=== PATIENT | male | born 1980 | race Caucasian/White ===

== ENCOUNTER 2018-10-17 23:31 | Emergency (ER) | payer MEDICAID, OTHER, SELFPAY ==
[~2018-10-17] VITALS: Ht 172.7 cm; Wt 71.8 kg
[2018-10-17 23:32] VITALS: BP 108/65
[2018-10-17] MEDS ORDERED: VIVI380I IM (23:39)
[2018-10-18] MEDS ORDERED: IPRATROPIUM 0.5MG/ALBUTEROL 2.5MG INH SOL UD 3ML (DUONEB)(J7620) NEB ONE (00:15)
[2018-10-18] MEDS ORDERED: AUGMENTIN 875 MG TAB PO ONE (00:15)
[2018-10-18] MEDS ORDERED: IBUP-1022 PO (00:52)
[2018-10-18] MEDS ORDERED: AUGM875T28 PO (00:52)
[2018-10-18] MEDS ORDERED: LIDO2SO PO (00:52)
[2018-10-18] MEDS ORDERED: PRED20TA PO (00:52)
[2018-10-18] MEDS ORDERED: PROAAER10 INH (00:52)
[2018-10-18] MEDS ORDERED: LIDOCAINE VISCOUS 2% SOLN 15ML UDC SSP ONE (01:00)
[2018-10-18] MEDS ORDERED: ALBUTEROL 90 MCG/ACT 8GM HFA INHALER INH ONE (01:00)
[2018-10-18] MEDS ORDERED: IBUPROFEN 600 MG TAB PO ONE (01:00)
--- NOTE | 2018-10-18 05:46 | REP ---
Clinical: Dyspnea and fever . Comparison: None . Technique: PA and lateral. Findings: The mediastinum and cardiac silhouette are normal. The lung bingham are clear and without acute consolidation, effusion, or pneumothorax. A small area of possible linear scarring in the medial left base identified on frontal radiograph cannot be excluded. The skeletal structures are intact and normal. Impression: 1. No acute cardiopulmonary process. Electronically Signed by Devyn Levine MD 10/18/2018 05:38 A
== END 2018-10-18 01:14 | disposition home or self-care (01) ==
LOC: EDBD 23:31 → M ED 23:31
DX: J06.9 Acute upper respiratory infection, unspecified (principal); K04.7 Periapical abscess without sinus; F19.11 Other psychoactive substance abuse, in remission; F17.200 Nicotine dependence, unspecified, uncomplicated

== ENCOUNTER → 2018-10-21 | Outpatient (CLI) | payer MEDICAID ==
[~2018-10-21] MED LIST: AUGM875T28 PO; IBUP-1022 PO; LIDO2SO PO; PRED20TA PO; PROAAER10 INH; VIVI380I IM
== END ==
LOC: M OUTALCOH 08:13
PROVIDERS: ATTEND Psychiatry & Neurology Psychiatry
DX: F11.20 Opioid dependence, uncomplicated (principal)

== ENCOUNTER 2020-05-10 19:04 | Emergency (ER) | payer MEDICAID ==
[~2020-05-10] VITALS: Ht 170.2 cm; Wt 63.4 kg
[2020-05-10 19:32] LABS: BASO % 0.2 % (0.0-1.0); EOS # 0.1 10^3/uL (0.0-0.5); HEMATOCRIT 36.8 % (42.0-52.0); HEMOGLOBIN 11.8 g/dl (13.5-17.5); LYMPH % 23.3 % (24.0-44.0); MEAN CORPUSCULAR HEMOGLOBIN 29.1 pg (27.0-33.0); MEAN CORPUSCULAR HGB CONC 32.1 g/dl (32.0-36.5); MEAN CORPUSCULAR VOLUME 90.9 fl (80.0-96.0); MONO # 0.9 10^3/uL (0.0-0.8); MONO % 21.8 % (0.0-5.0); NEUTROPHILS # 2.1 10^3/uL (1.5-8.5); NEUTROPHILS % 52.5 % (36.0-66.0); PLATELET COUNT, AUTOMATED 343 10^3/uL (150-450); RED BLOOD COUNT 4.05 10^6/uL (4.30-6.10); WHITE BLOOD COUNT 4.1 10^3/uL (4.0-10.0)
[2020-05-10 19:55] LABS: ACETAMINOPHEN LEVEL < 2.0 UG/ML (10.0-30.0); ALBUMIN 3.2 GM/DL (3.2-5.2); ALT/SGPT 35 U/L (12-78); BILIRUBIN,DIRECT 0.1 MG/DL (0.0-0.2); BILIRUBIN,TOTAL 0.2 MG/DL (0.2-1.0); BLOOD UREA NITROGEN 18 MG/DL (7-18); CALCIUM LEVEL 8.4 MG/DL (8.5-10.1); CARBON DIOXIDE LEVEL 25 MEQ/L (21-32); CHLORIDE LEVEL 109 MEQ/L (98-107); CREATININE FOR GFR 0.83 MG/DL (0.70-1.30); ETHYL ALCOHOL (ETHANOL) < 0.003 % (0.000-0.010); GLOMERULAR FILTRATION RATE > 60.0 (>60); GLUCOSE, FASTING 100 MG/DL (70-100); SALICYLATE LEVEL < 1.7 MG/DL (5.0-30.0); SODIUM LEVEL 142 MEQ/L (136-145); TOTAL PROTEIN 6.9 GM/DL (6.4-8.2)
[2020-05-10 22:40] VITALS: BP 112/75
--- NOTE | 2020-05-11 12:15 | ECGEPIP ---
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
--- NOTE | 2020-05-21 16:06 | REP ---
RIGHT LOWER EXTREMITY DUPLEX DOPPLER VENOUS ULTRASOUND: HISTORY: Swelling for one week. FINDINGS: Real time compression and duplex Doppler interrogation of the right lower extremity deep venous system is performed. The right common femoral, superficial femoral and popliteal veins are fully compressible with transducer pressure and demonstrate normal spontaneous and phasic flow without evidence of deep venous thrombosis. IMPRESSION: No evidence of deep venous thrombosis of right lower extremity. Preliminary report provided by [facility] at the time of the examination. SHEILA
--- NOTE | 2020-05-21 16:06 | REP ---
RIGHT ANKLE SERIES HISTORY: Swelling and tenderness. FINDINGS: Four portable views of the right ankle are performed. There is mild soft tissue swelling diffusely. No acute fracture, dislocation or intrinsic bone disease is visualized. IMPRESSION: Mild soft tissue swelling. No other significant finding. Preliminary report provided by [facility] at the time of the examination. SHEILA
--- NOTE | 2020-05-21 16:07 | REP ---
PORTABLE CHEST X-RAY: SINGLE VIEW HISTORY: Drug overdose. COMPARISON: 10/18/2018. FINDINGS: Monitoring electrodes overlie the chest. The lungs are well-inflated and clear. Pleural angles are sharp. Heart is not enlarged. No bony abnormality is seen. IMPRESSION: Negative portable chest x-ray. MTDD
== END 2020-05-10 22:42 | disposition home or self-care (01) ==
LOC: M ED 19:04
DX: S01.511A Laceration without foreign body of lip, initial encounter (principal); F11.229 Opioid dependence with intoxication, unspecified; F17.200 Nicotine dependence, unspecified, uncomplicated; M79.661 Pain in right lower leg; Z79.51 Long term (current) use of inhaled steroids; Y92.9 Unspecified place or not applicable; Y93.9 Activity, unspecified; Y99.9 Unspecified external cause status
CPT/HCPCS: 36415; 71045; 73610; 80048; 80076; 85025; 93005; 93971; 99284; G0480

== ENCOUNTER → 2020-07-09 | Outpatient (REF) | payer OTHER | LOC: M LAB REF 15:11 | PROVIDERS: ATTEND Surgery | DX: Z20.828 Contact with and (suspected) exposure to other viral communicable diseases (principal) ==